=== PATIENT | female | born 2005 ===

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

== ENCOUNTER → 2023-03-04 | Outpatient (CLI) | payer OTHER | LOC: LAB SHORT 12:52 → LAB 12:52 | DX: N39.0 Urinary tract infection, site not specified (principal) | CPT/HCPCS: 87086 ==

== ENCOUNTER → 2025-03-10 | Outpatient (CLI) | payer OTHER | LOC: LAB 16:00 | DX: F90.9 Attention-deficit hyperactivity disorder, unspecified type (principal) ==